=== PATIENT | male | born 1980 | race Caucasian/White ===

== ENCOUNTER 2024-11-02 10:56 | Emergency (ER) | payer OTHER, SELFPAY ==
[2024-11-02 10:57] VITALS: BP 165/97; PULSE 105; RESP 16; TEMP 36.6; O2SAT 100; BMI 25.0
--- NOTE | 2024-11-02 11:02 | EDS_ITS ---
HPI History of Present Illness Chief Complaint: Chest Other Informant: patient Onset/Context/Timing Onset: Days (3) Mechanism/Context: Blunt Injury Quality of Pain: Sharp Location: Right ribs Worsened by: Deep breathing Relieved by: Nothing Associated Symptoms Associated Symptoms: Negative for Parasthesias, Weakness, Loss of function, Inability to ambulate or Loss of consciousness Narrative Narrative: Patient presents with right rib pain that began 3 days ago. Patient states he fell while he was helping somebody move. Patient states he hit his right ribs on the bumper of a moving truck. Patient states he felt a sharp pop at that time. Patient states the pain is worse with deep breathing. Patient states nothing seems to help with it. Patient denies any shortness of breath. Patient denies any abdominal pain. Patient denies any head injury or loss of consciousness. Patient denies any other injuries. [facility] Medical History (Updated 11/02/24 @ 12:[address] Rigoberto Ramirez DO) GERD (gastroesophageal reflux disease) Hypertension Home Medications ?Medication ?Instructions ?Recorded ?Last Taken ?Type Cetirizine Hcl [Zyrtec] 10 mg PO DAILY 08/07/14 02/19/17 History Ranitidine [Zantac] 300 mg PO DAILY 08/07/14 02/19/17 History lansoprazole 30 mg capsule,delayed 30 mg PO DAILY 08/07/14 02/19/17 History release (Prevacid) metoprolol tartrate 25 mg tablet 25 mg PO DAILY 08/07/14 02/19/17 History Allergy/AdvReac Type Severity Reaction Status Date / Time No Known Allergies Allergy Verified 11/02/24 10:57 Surgical History no surgical history no surgical history Social History Smoking Status: Former smoker ROS ROS ED Constitutional Constitutional ED: Denies chills or fever(s) Eyes Eyes: Denies blurry vision or change in vision ENT ENT ED: Denies rhinorrhea or sore throat Cardiovascular Cardiovascular: Reports chest pain; Denies palpitations Respiratory/Chest Respiratory/Chest: Denies cough or dyspnea Gastrointestinal Gastrointestinal: Denies nausea or vomiting Genitourinary Genitourinary ED: Denies dysuria or hematuria Musculoskeletal Musculoskeletal: Denies back pain or neck pain Integumentary Denies abscess or rash Neurologic Neurologic: Denies headache(s) or weakness Allergic/Immunologic Allergic/Immunologic ED: Denies mouth swelling or urticaria EXAM Physical Exam Const Vital Signs: 11/02/24 10:57 11/02/24 10:57 Temperature 98 F Temperature Source Temporal Pulse Rate 105 H Respiratory Rate 16 Respiratory Effort Normal Non-Labored Blood Pressure 165/97 H Blood Pressure Mean 119 Pulse Ox 100 Oxygen Delivery Method Room Air Positive well nourished and well developed General Appearance ED: well developed and NAD HEENT atraumatic Neck full ROM Chest Wall inspection of chest normal Chest Narrative: There is tenderness over the right lateral ribs. There is no edema or ecchymosis. There is no bony crepitance or step-off. There is no subcutaneous emphysema palpated. Resp normal respiratory effort and clear to auscultation bilaterally Cardio regular rhythm Rate: regular rate GI non-tender and non-distended Palpation: soft Neuro oriented x3, CN's II-XII intact bilaterally, moves all extremities, no focal motor deficits and no sensory deficits noted Justin Coma Scale: document GCS findings Spontaneous Obeys Commands Oriented 15 Sensorium / Orientation: alert Motor Exam: strength 5/5 throughout Skin no wounds MDM MDM MDM Narrative Medical decision making narrative: Differential diagnosis includes rib fracture, contusion, and pneumothorax. X- rays of the right ribs will be obtained to assess for fracture. Radiography Diagnostic Testing: Clinical Impression(s) from Imaging Studies Ribs w/Chest X-Ray 11/02/24 11:20 IMPRESSION: RIBS: Normal x-ray examination of the ribs. CHEST: Normal x-ray examination of the chest. Electronically Signed: Deondre Ling MD at 12:07 [facility] Reading Location ID and State: [id number] / [place] , Service support , X-rays of the right ribs were obtained. There are 5 views. On my independent interpretation, there is no acute fracture. There is no pneumothorax. Radiologist also interpreted the x-rays and agrees. Treatment and Re-Evaluation Narrative: Patient was given injection of Toradol here. Patient was advised of his findings. Patient was instructed to use ice to the area. Patient was instructed to take 10-15 deep breaths every hour while awake to prevent atelectasis and pneumonia. Patient was instructed to follow-up with his primary care physician in 5 to 7 days. Patient was instructed to take Tylenol or ibuprofen as needed for pain. Patient understood and was agreeable with the plan. All questions were answered. Discharge Plan Triage Chief Complaint: Chest Other ED Provider: Rigoberto Ramirez Dx/Rx/DC Orders Clinical Impression: Chest wall contusion, Hypertension Instructions: ED Chest Wall Contusion Prescriptions: No Action metoprolol tartrate 25 MG tablet 25 mg PO DAILY lansoprazole [Prevacid] 30 MG capsule 30 mg PO DAILY Cetirizine Hcl [Zyrtec] 10 MG tablet 10 mg PO DAILY Ranitidine [Zantac] 150 MG tablet 300 mg PO DAILY Primary Care Provider: Taj Arguelles Referrals: Taj Arguelles MD [Primary Care Provider] - 5-7 Days Print Language: Prydeinig Disposition Disposition: Home, Self Care
--- NOTE | 2024-11-02 11:20 | RAD_ITS ---
STUDY: X-RAY - UNILATERAL RIBS ( RIGHT ) WITH CHEST REASON FOR EXAM: Male, 44 years old. Trauma TECHNIQUE - RIBS: 4 view(s) of the ribs. TECHNIQUE - CHEST: Single PA view of the chest. COMPARISON: None. FINDINGS - RIBS: Normal visualized ribs without a demonstrated fracture. FINDINGS - CHEST: The lungs are clear and expanded. There is no demonstrated pleural abnormality. Normal size heart. Normal mediastinum and demetrio. Normal visualized pulmonary arteries. Normal visualized aortic arch and descending thoracic aorta. Normal visualized thoracic spine. Normal visualized ribs, clavicles, and shoulders. There is no demonstrated abnormality of the visualized soft tissue structures of the upper abdomen. RAD/Ribs Uni Min 3V w/PA Chest IMPRESSION: RIBS: Normal x-ray examination of the ribs. CHEST: Normal x-ray examination of the chest. Electronically Signed: Deondre Ling MD at 12:07 EST ,
[2024-11-02] MEDS: Ketorolac 60 MG/2 ML Vial IM (11:50)
== END 2024-11-02 12:31 | disposition home or self-care (01) ==
PROVIDERS: Emergency Provider Emergency Medicine; PCP Family Medicine; Visit Provider Emergency Medicine
DX: S20.20XA Contusion of thorax, unspecified, initial encounter (principal); I10 Essential (primary) hypertension; Z87.891 Personal history of nicotine dependence; K21.9 Gastro-esophageal reflux disease without esophagitis; W19.XXXA Unspecified fall, initial encounter
CPT/HCPCS: 71101; 96372; 99282